=== PATIENT | female | born 1975 | race Caucasian/White ===

== ENCOUNTER 2023-04-20 10:00 | Outpatient (RCR) | payer OTHER, SELFPAY | END 2023-05-19 15:55 | disposition home or self-care (01) | LOC: PT 10:00 | PROVIDERS: PCP Nurse Practitioner Family; Visit Provider Nurse Practitioner Family | DX: M54.32 Sciatica, left side (principal) | CPT/HCPCS: 97010; 97014; 97110; 97140; 97163; G0283 ==

== ENCOUNTER 2024-05-16 14:48 | Outpatient (CLI) | payer OTHER, BC, SELFPAY ==
--- NOTE | 2024-05-16 14:52 | XR_ITS ---
FINAL REPORT CLINICAL HISTORY: Foot pain. Neuropathy. Bone spur. FINDINGS: LEFT FOOT Three views were obtained. There is no fracture or dislocation. There is mild hallux valgus deformity. Mild degenerative changes are identified. Calcaneal spurs are noted. No soft tissue abnormality is identified. IMPRESSION: Degenerative changes as above. Reviewed, Interpreted and Dictated by Benjamin Sams III, MD Transcribed by Iman Gutierrez Authenticated and [facility]
== END 2024-05-16 23:59 | disposition home or self-care (01) ==
PROVIDERS: PCP Nurse Practitioner Family; Visit Provider Podiatrist
DX: M79.672 Pain in left foot (principal)
CPT/HCPCS: 73630

== ENCOUNTER 2024-09-08 12:58 | Day surgery (SDC) | payer BC, OTHER, SELFPAY ==
[2024-08-02 14:57] VITALS: BMI 38.7
[2024-09-08 13:24] VITALS: BP 128/71; PULSE 81; RESP 18; TEMP 36.3; O2SAT 97; BMI 37.8
[2024-09-08] MEDS: LACTATED RINGERS 1000ML 1,000 ML 50 ML IV (13:35)
--- NOTE | 2024-09-08 14:28 | P.PNANES_ITS ---
[facility] Disclaimer: The information contained in this section may have been updated after the patient was seen, as this information can be updated by other users. Medical History Anxiety and depression Hyperlipidemia Diabetes mellitus, type 2 Surgical History History of cholecystectomy History of colonoscopy History of hysterectomy Family History Other Family history of dementia Family history of diabetes mellitus type II Family history of hyperlipidemia Family history of hypertension Social History Smoking Status: Never smoker alcohol intake: never substance use type: denies use current occupational status: employed Travel in the last 8 weeks: None caffeine: Yes [facility] Anesthesia Checklist Patient Identification Patient Identification: Arm Band and Verbal (Name & ) Structural Data Admitted From: Home Planned Operative Procedure/s: colocscopy Consent for Planned Operative Procedure(s) Verified: Yes Verified Documents: Surgical Consent and History and Physical NPO Status Verified Time NPO: 00:00 Additional verifications Fingerstick Blood Glucose: 106 Patient : No Anesthesia Reactions: No Airway Assessment Mallampati Score:: Class II Dentition: Good Dentition Neurological Assessment Level of Consciousness: Awake, Alert and Appropriate Hx Seizures: No Numbness or tingling in extremities: No Anesthesia Plan Anesthesia Risk discussed: Yes Anesthesia Plan: Verified ASA Class: II Anesthesia Type: MAC
--- NOTE | 2024-09-08 14:29 | EXP.HP ---
History of Present Illness *Admission Date: 09/08/24 *Reason for visit:: Positive Cologuard *History of present illness: Mrs. Stauffer is a 49-year-old female who is here for screening colonoscopy secondary to a positive Cologuard. The examination is deemed medically necessary for screening colonoscopy. The patient has been seen, interviewed and examined prior to the procedure by both myself and the anesthesia provider. [facility] Disclaimer: The information contained in this section may have been updated after the patient was seen, as this information can be updated by other users. Medical History (Updated 09/08/24 @ 14:29 by Mason Lund II, MD) Anxiety and depression Hyperlipidemia Diabetes mellitus, type 2 Surgical History History of cholecystectomy History of colonoscopy History of hysterectomy Family History Other Family history of dementia Family history of diabetes mellitus type II Family history of hyperlipidemia Family history of hypertension Social History (Updated 09/08/24 @ 13:32 by Masha Rosenberg RN) Smoking Status: Never smoker alcohol intake: never substance use type: denies use current occupational status: employed Travel in the last 8 weeks: None caffeine: Yes Review of Systems Review of Systems Review of systems (narrative): Negative *Cardiovascular Comments: Negative *Gastrointestinal Comments: Negative *Genitourinary Comments: Negative *Musculoskeletal Comments: Negative *Neurologic Comments: Negative Meds Home Medications and Allergies Home Medications ?Medication ?Instructions ?Recorded ?Confirmed ?Type fluoxetine 40 mg capsule 40 mg PO DAILY 11/26/21 08/02/24 History lisinopril 2.5 mg tablet 2.5 mg PO DAILY 11/26/21 08/02/24 History lovastatin 10 mg tablet 10 mg PO DAILY 11/26/21 09/08/24 History metformin 500 mg tablet 500 mg PO DAILY 11/26/21 09/08/24 History gabapentin 300 mg capsule 300 mg PO HS 08/02/24 08/02/24 History sodium,potassium,mag sulfates 17.5 See Rx Instructions PO .COMPLEX 08/02/24 Rx gram-3.13 gram-1.6 gram oral soln #354 mL (Suprep Bowel Prep Kit) New Prescriptions to Start Prescriptions: Allergies Allergy/AdvReac Type Severity Reaction Status Date / Time No Known Allergies Allergy Verified 09/08/24 13:23 Exam Data for Last 24 hours Vital signs and Labs for Last 24 Hours: Temp Pulse Resp BP Pulse Ox O2 Del Method 97.4 F L 81 18 128/71 97 Room Air 09/08/24 13:24 09/08/24 13:24 09/08/24 13:24 09/08/24 13:24 09/08/24 13:24 09/08/24 13:24 I & O for Last 24 hours: Intake & Output 09/05/24 09/06/24 09/07/24 09/08/24 23:59 23:59 23:59 23:59 Weight 200 lb *Routine HEENT Exam Head: Present normocephalic Eye: Present EOMI and PERRL ENT: Present mucous membranes moist *Routine Neck Exam Neck: Present supple *Routine Respiratory Exam Respiratory: Present CTA bilaterally *Routine Cardiovascular Exam Cardiovascular: Present RRR *Routine Abdominal Exam Abdominal: Present soft and normoactive bowel sounds; Absent tenderness *Routine Rectal Exam Rectal:: deferred *Routine Genitalia Exam Genitalia:: deferred *Routine Extremities Exam Extremities: Absent cyanosis, clubbing or edema *Routine Skin Exam Skin: Present warm; Absent rash *Routine Neurological Exam Neurological: Present alert and oriented X3 Assessment and Plan *Assessment and plan (1) Positive colorectal cancer screening using Cologuard test: Status: Acute Category: Medical Code(s): R19.5 - Other fecal abnormalities Plan A/P: 1. Positive Cologuard is the preprocedural diagnosis. The patient will be anesthetized/sedated using MAC sedation. The patient has been seen and examined. Cardiac and lung assessment prior to the examination is stable. Proceed with planned screening colonoscopy
--- NOTE | 2024-09-08 14:30 | P.PCN_ITS ---
[facility] Procedure Note Date: 09/08/24 Time: 14:45 Procedure Note:: Colonoscopy Procedure Report: Colonoscopy with cold snare polypectomy Endoscopist: Mason Lnud II, MD Referring physician: CHARLENE Garay Date of Procedure: September 08, 2024 Equipment: Olympus 190 variable stiffness pediatric colonoscope Sedation: MAC sedation Indication: Mrs. Stauffer is a 49-year-old female who is here for screening colonoscopy secondary to a recently positive Cologuard test. She does state that she had a colonoscopy nearly 30 years ago. She reports no abdominal pain, weight loss or family history of colon cancer. She does have some bowel irregularity with intermittent diarrhea after her gallbladder surgery. She does note a thickened texture to her bowel movements. She does have occasional spotting of blood in the tissue from internal hemorrhoids. Procedure: Prior to the procedure, a history and physical exam was performed, and patient's medications and allergies were reviewed. The risks, benefits and alternatives of the sedation and procedure were discussed with the patient. All questions were answered and informed consent was obtained. The patient was brought to the procedure room. Patient identification and proposed procedure were verified by the physician and the nurse. The patient was placed in a left lateral decubitus position and the scope was passed under direct vision. Throughout the procedure, the patient's blood pressure, pulse, and oxygen saturations were monitored continuously. The colonoscopy was accomplished without difficulty. The patient tolerated the procedure well. Findings: On digital rectal examination there was normal rectal tone. There were no external hemorrhoids. The colonoscope was introduced through the anal canal to the rectum and advanced to the cecum. The ileocecal valve and appendiceal orifice were identified. The scope was advanced a short distance into the ileum which appeared grossly normal. The scope was then withdrawn into the colon. There was a single pedunculated 11 to 12 mm polyp in the descending colon remove d via snare cautery. The remaining cecum, ascending, transverse, descending, sigmoid and rectum were grossly normal. There were no other mucosal abnormalities identified. Upon retroflexion within the rectum there were grade 1-2 internal hemorrhoids. The preparation was excellent throughout with Yeaddiss Preparation Score of 9. The cecal time was 12 minutes. Impression: 1. Sigmoid colon polyp (pedunculated 11 to 12 mm) 2. Grade 1-2 internal hemorrhoids Plan: I will follow-up the polyp histology and recommend repeat surveillance colonoscopy again in 3 to 5 years based upon the pathology. I would encourage bulking fiber supplementation on a long-term daily maintenance basis.
[2024-09-08 14:31] VITALS: O2SAT 97
[2024-09-08 14:52] VITALS: BP 112/64; PULSE 92; RESP 16; TEMP 36.1; O2SAT 97
[2024-09-08 15:02] VITALS: BP 106/71; PULSE 92; RESP 16; O2SAT 97
[2024-09-08 15:12] VITALS: BP 117/73; PULSE 101; RESP 16; O2SAT 98
--- NOTE | 2024-09-08 17:17 | P.PNANES_ITS ---
[facility] Anesthesia Record Part I Anesthesia Record I Intake, IV Amount: 1,500 Hydration: Adequate Estimated blood loss (mL): 50 Urine output (mL): 0 Blood Pressure: 132/76 SaO2: 98 Pulse Rate: 104 Airway Patency: Patent Respiratory Rate: 20 Temperature: 98.3 F Patient is:: Awake and Stable Stable to PACU at:: 17:20
[2024-09-08 17:18] VITALS: BP 132/76; PULSE 104; RESP 20; TEMP 36.8; O2SAT 98
[2024-09-09 10:15] LABS: POC Glucose,Bedside 106 (70-110)
== END 2024-09-08 15:20 | disposition home or self-care (01) ==
PROVIDERS: PCP Nurse Practitioner Family; Visit Provider Internal Medicine Gastroenterology
PROC: 0DJD8ZZ Inspection of Lower Intestinal Tract, Via Natural or Artificial Opening Endoscopic (ICD-10-PCS; CPT 45378; principal; 2024-09-08 14:30)
DX: K63.5 Polyp of colon (principal); K64.8 Other hemorrhoids; R19.5 Other fecal abnormalities; Z12.11 Encounter for screening for malignant neoplasm of colon
CPT/HCPCS: 45385; 82962; J7120